=== PATIENT | female | born 1995 | race Caucasian/White ===

== ENCOUNTER 2019-09-19 22:45 | Observation (INO) | payer OTHER ==
[~2019-09-19] VITALS: Ht 167.6 cm; Wt 99.8 kg
[2019-09-19] MEDS ORDERED: LACTATED RINGERS 1,000 ML IV SCH (23:50)
[2019-09-19 23:54] VITALS: BP 132/79
[2019-09-20] MEDS ORDERED: TRA200 PO (05:52)
[2019-09-20] MEDS ORDERED: PREN-380 PO (05:52)
[2019-09-20 06:28] LABS: BASOPHILS % (AUTO) 0.3 % (0.0-2.0); EOSINOPHILS # (AUTO) 0.2 K/uL (0-0.4); EOSINOPHILS % (AUTO) 1.7 % (0.0-4.0); HEMATOCRIT 31.3 % (36-48); HEMOGLOBIN 10.4 g/dL (12.0-16.0); LYMPHOCYTES # (AUTO) 2.1 K/uL (2.5-16.5); LYMPHOCYTES % (AUTO) 20.5 % (20.5-51.1); MEAN CORPUSCULAR HEMOGLOBIN 26 pg (27-31); MEAN CORPUSCULAR HGB CONC 33 g/dL (33-37); MEAN CORPUSCULAR VOLUME 77.2 fL (80-94); MONOCYTES # (AUTO) 0.7 K/uL (0.8-1.0); MONOCYTES % (AUTO) 7.1 % (1.7-9.3); NEUTROPHILS # (AUTO) 7.2 K/uL (1.8-7.7); NEUTROPHILS % (AUTO) 70.4 % (42.2-75.2); PLATELET COUNT (AUTO) 362 K/uL (140-450); RED BLOOD CELL COUNT(AUTO) 4.06 MIL/uL (4.20-5.40); RED CELL DISTRIBUTION WIDTH 14.4 % (11.6-13.7); WHITE BLOOD COUNT (AUTO) 10.2 K/uL (4.8-10.8)
== END 2019-09-20 06:10 | disposition home or self-care (01) ==
LOC: MLD 22:45
PROVIDERS: ADMIT Obstetrics & Gynecology; ATTEND Obstetrics & Gynecology
DX: O62.9 Abnormality of forces of labor, unspecified (principal); O26.893 Other specified pregnancy related conditions, third trimester; R10.2 Pelvic and perineal pain; Z3A.38 38 weeks gestation of pregnancy
CPT/HCPCS: 36415; 81000; 85025; 86886; 86900; 86901; G0378; J7120

== ENCOUNTER 2019-09-20 14:45 | Outpatient (CLI) | payer OTHER ==
[~2019-09-20 14:45] MED LIST: PREN-380 PO; TRA200 PO
[2019-09-20 15:58] LABS: APPEARANCE,URINE CLEAR (CLEAR); BILIRUBIN,URINE NEGATIVE (NEGATIVE); BLOOD, URINE 1+ (NEGATIVE); LEUKOCYTE ESTERASE ,URINE TRACE (NEGATIVE); NITRITE, URINE NEGATIVE (NEGATIVE); PH,URINE 6.5 (5.0-9.0); UGLUCOSE NEGATIVE (NEGATIVE)
[2019-09-20 16:00] LABS: COLOR,URINE STRAW (YELLOW); PROTHROMBIN TIME 8.8 secs (10.8-13.4)
[2019-09-20 16:09] LABS: RBC,URINE 0-5 /HPF (0-5); WBC,URINE 0-5 /HPF (0-5)
[2019-09-20 20:01] LABS: ALBUMIN 2.7 g/dL (3.4-5.0); ANION GAP 15.7 (8-16); CARBON DIOXIDE 21.4 mmol/L (21-32); CREATININE 0.8 mg/dL (0.6-1.3); POTASSIUM 4.1 mmol/L (3.5-5.1); TOTAL BILIRUBIN 0.2 mg/dL (0.0-1.0)
== END 2019-09-20 19:56 | disposition home or self-care (01) ==
LOC: MLB 14:45
PROVIDERS: ATTEND Obstetrics & Gynecology
DX: Z01.818 Encounter for other preprocedural examination (principal); O34.219 Maternal care for unspecified type scar from previous cesarean delivery; Z3A.39 39 weeks gestation of pregnancy
CPT/HCPCS: 36415; 80053; 81001; 85610; 85730

== ENCOUNTER 2019-09-22 05:36 | Inpatient (IN) | payer OTHER ==
[~2019-09-22] VITALS: Ht 167.6 cm; Wt 99.8 kg
[2019-09-22] MEDS ORDERED: LACTATED RINGERS 1,000 ML IV SCH (05:52)
[2019-09-22] MEDS ORDERED: ceFAZolin 1,000 MG VIAL ONE (06:54)
[2019-09-22 06:56] VITALS: BP 122/73
[2019-09-22] MEDS ORDERED: CITRIC ACID/SODIUM CITRATE 30 ML UDC ONE (07:10)
[2019-09-22] MEDS ORDERED: CITRIC ACID/SODIUM CITRATE 30 ML UDC PO SCH (07:30)
[2019-09-22] MEDS ORDERED: MORPHINE PRES FREE 10 MG/10 ML AMP IV ONE (07:40)
[2019-09-22] MEDS ORDERED: fentaNYL 0.05 MG/ML VIAL ONE (07:40)
[2019-09-22] MEDS ORDERED: SIMETHICONE 80 MG TAB.CHEW PO PRN (07:55)
[2019-09-22] MEDS ORDERED: ONDANSETRON 4 MG/2 ML VIAL IVP PRN ×2 (08:05)
[2019-09-22] MEDS ORDERED: NALBUPHINE 10 MG/ML AMP IVP PRN (08:05)
[2019-09-22] MEDS ORDERED: diphenhydrAMINE 50 MG/ML VIAL IVP PRN (08:05)
[2019-09-22] MEDS ORDERED: KETOROLAC 30 MG/ML VIAL IVP PRN (08:05)
[2019-09-22] MEDS ORDERED: NALOXONE 0.4 MG/ML VIAL IVP PRN ×3 (08:05)
--- NOTE | 2019-09-22 08:30 | NUR ---
PATIENT HAS BEEN SCREENED AND CATEGORIZED LOW NUTRITION RISK. PATIENT WILL BE SEEN WITHIN 7 DAYS OF ADMISSION. 09/28/[address]
[2019-09-22] MEDS ORDERED: ONDANSETRON 4 MG/2 ML VIAL ONE (08:42)
[2019-09-22] MEDS ORDERED: OXYTOCIN 20 UNITS/LR PREMIX 1,000 ML IV ONE (08:42)
[2019-09-22] MEDS ORDERED: CALCIUM POLYCARBOPHIL 625 MG TAB PO SCH (09:00)
[2019-09-22] MEDS ORDERED: BISACODYL 10 MG SUPP RC SCH (09:00)
[2019-09-22] MEDS: LABETALOL 200 MG TAB PO SCH ×2 (13:00→21:17)
[2019-09-22] MEDS: OXYTOCIN 20 UNITS in LACTATED RINGERS 1,000 ML IV SCH ×2 (13:09→21:20)
[2019-09-22 13:26] LABS: APPEARANCE,URINE CLEAR (CLEAR); BILIRUBIN,URINE NEGATIVE (NEGATIVE); BLOOD, URINE 1+ (NEGATIVE); COLOR,URINE YELLOW (YELLOW); LEUKOCYTE ESTERASE ,URINE TRACE (NEGATIVE); NITRITE, URINE NEGATIVE (NEGATIVE); UGLUCOSE NEGATIVE (NEGATIVE)
[2019-09-22 13:33] LABS: WBC,URINE 0-5 /HPF (0-5)
[2019-09-22] MEDS ORDERED: SENNA 8.6 MG TAB PO SCH (21:00)
[2019-09-22] MEDS: DOCUSATE SOD/SENNA 50/8.6 MG 1 TAB PO SCH (21:00)
[2019-09-23] MEDS: KETOROLAC 30 MG/ML VIAL IVP PRN ×2 (00:40→07:56)
[2019-09-23] MEDS ORDERED: OXYTOCIN 20 UNITS/LR PREMIX 1,000 ML IV ONE (04:54)
[2019-09-23] MEDS: OXYTOCIN 20 UNITS in LACTATED RINGERS 1,000 ML IV SCH (05:03)
[2019-09-23] MEDS: HYDROcodone/APAP 5/325 MG 1 TAB TAB PO PRN ×3 (06:24→21:31)
[2019-09-23] MEDS ORDERED: oxyCODONE/APAP 5/325 MG 1 TAB TAB PO PRN (08:00)
[2019-09-23] MEDS ORDERED: IBUPROFEN 800 MG TAB PO PRN (08:00)
[2019-09-23] MEDS ORDERED: TEMAZEPAM 15 MG CAP PO PRN (08:00)
[2019-09-23] MEDS ORDERED: BUPRENORPHINE 0.3 MG/ML VIAL IV PRN (08:00)
[2019-09-23 08:36] LABS: BASOPHILS % (AUTO) 0.3 % (0.0-2.0); EOSINOPHILS # (AUTO) 0.2 K/uL (0-0.4); EOSINOPHILS % (AUTO) 2.1 % (0.0-4.0); HEMATOCRIT 30.8 % (36-48); HEMOGLOBIN 10.2 g/dL (12.0-16.0); LYMPHOCYTES # (AUTO) 1.1 K/uL (2.5-16.5); LYMPHOCYTES % (AUTO) 10.1 % (20.5-51.1); MEAN CORPUSCULAR HEMOGLOBIN 26 pg (27-31); MEAN CORPUSCULAR HGB CONC 33 g/dL (33-37); MEAN CORPUSCULAR VOLUME 76.7 fL (80-94); MONOCYTES # (AUTO) 0.7 K/uL (0.8-1.0); MONOCYTES % (AUTO) 6.1 % (1.7-9.3); NEUTROPHILS # (AUTO) 8.9 K/uL (1.8-7.7); NEUTROPHILS % (AUTO) 81.4 % (42.2-75.2); PLATELET COUNT (AUTO) 355 K/uL (140-450); RED BLOOD CELL COUNT(AUTO) 4.02 MIL/uL (4.20-5.40); RED CELL DISTRIBUTION WIDTH 14.7 % (11.6-13.7); WHITE BLOOD COUNT (AUTO) 10.9 K/uL (4.8-10.8)
[2019-09-23] MEDS: LABETALOL 200 MG TAB PO SCH ×2 (09:26→21:32)
[2019-09-23] MEDS: BISACODYL 5 MG TABEC PO SCH ×2 (09:28→21:32)
[2019-09-23] MEDS: DOCUSATE SOD/SENNA 50/8.6 MG 1 TAB PO SCH (21:33)
[2019-09-24] MEDS: BISACODYL 5 MG TABEC PO SCH ×2 (08:39→21:00)
[2019-09-24] MEDS: LABETALOL 200 MG TAB PO SCH ×2 (08:39→20:44)
[2019-09-24] MEDS: HYDROcodone/APAP 5/325 MG 1 TAB TAB PO PRN ×2 (08:39→20:43)
[2019-09-24] MEDS: DOCUSATE SOD/SENNA 50/8.6 MG 1 TAB PO SCH (21:00)
[2019-09-25] MEDS ORDERED: KETOROLAC 30 MG/ML VIAL IVP PRN (08:00)
[2019-09-25] MEDS: HYDROcodone/APAP 5/325 MG 1 TAB TAB PO PRN (08:34)
[2019-09-25] MEDS: BISACODYL 5 MG TABEC PO SCH (08:34)
[2019-09-25] MEDS: LABETALOL 200 MG TAB PO SCH (08:35)
== END 2019-09-25 16:20 | disposition home or self-care (01) | DRG 787 ==
LOC: MLD 05:36 → MFCC 08:22
PROVIDERS: ADMIT Obstetrics & Gynecology; ATTEND Obstetrics & Gynecology
PROC: 10D00Z1 Extraction of Products of Conception, Low, Open Approach (ICD-10-PCS; principal; 2019-09-22 07:30)
PROC: 3E0234Z Introduction of Serum, Toxoid and Vaccine into Muscle, Percutaneous Approach (ICD-10-PCS; 2019-09-23)
DX: O34.211 Maternal care for low transverse scar from previous cesarean delivery (principal); O10.92 Unspecified pre-existing hypertension complicating childbirth; O76 Abnormality in fetal heart rate and rhythm complicating labor and delivery; Z3A.39 39 weeks gestation of pregnancy; Z37.0 Single live birth; Z23 Encounter for immunization
CPT/HCPCS: 36415; 81001; 85025; 86592; 87081; 90715; J0690; J1885; J2270; J2405; J2590; J3010; J7060; J7120

== ENCOUNTER 2020-11-22 17:40 | Emergency (ER) | payer OTHER ==
[~2020-11-22] VITALS: Ht 167.6 cm; Wt 108.9 kg
[~2020-11-22 17:40] MED LIST changes: -TRA200 PO
[2020-11-22 19:09] VITALS: BP 155/93
--- NOTE | 2020-11-22 19:11 | NUR ---
providing urine and triaged and waiting in lobby.
[2020-11-22 20:52] LABS: BASOPHILS % (AUTO) 0.2 % (0.0-2.0); EOSINOPHILS # (AUTO) 0.2 K/uL (0-0.4); EOSINOPHILS % (AUTO) 1.8 % (0.0-4.0); HEMATOCRIT 29.8 % (36-48); HEMOGLOBIN 9.7 g/dL (12.0-16.0); LYMPHOCYTES # (AUTO) 1.4 K/uL (2.5-16.5); LYMPHOCYTES % (AUTO) 11.4 % (20.5-51.1); MEAN CORPUSCULAR HEMOGLOBIN 24 pg (27-31); MEAN CORPUSCULAR HGB CONC 33 g/dL (33-37); MEAN CORPUSCULAR VOLUME 73.9 fL (80-94); MONOCYTES # (AUTO) 0.7 K/uL (0.8-1.0); MONOCYTES % (AUTO) 5.9 % (1.7-9.3); NEUTROPHILS # (AUTO) 10.1 K/uL (1.8-7.7); NEUTROPHILS % (AUTO) 80.7 % (42.2-75.2); PLATELET COUNT (AUTO) 419 K/uL (140-450); RED BLOOD CELL COUNT(AUTO) 4.04 MIL/uL (4.20-5.40); RED CELL DISTRIBUTION WIDTH 15.8 % (11.6-13.7); WHITE BLOOD COUNT (AUTO) 12.5 K/uL (4.8-10.8)
[2020-11-22 21:02] LABS: APPEARANCE,URINE CLEAR (CLEAR); BILIRUBIN,URINE NEGATIVE (NEGATIVE); BLOOD, URINE 3+ (NEGATIVE); COLOR,URINE YELLOW (YELLOW); LEUKOCYTE ESTERASE ,URINE NEGATIVE (NEGATIVE); NITRITE, URINE NEGATIVE (NEGATIVE); UGLUCOSE NEGATIVE (NEGATIVE)
[2020-11-22 21:39] LABS: RBC,URINE 20-50 /HPF (0-5)
[2020-11-22 21:41] LABS: WBC,URINE 0-5 /HPF (0-5)
[2020-11-22 21:50] VITALS: BP 132/71
--- NOTE | 2020-11-22 21:51 | NUR ---
see complete assessment.
--- NOTE | 2020-11-22 22:09 | NUR ---
Patient discharged with v/s stable. Written and verbal after care instructions given and explained. Patient verbalized understanding. Ambulatory with steady gait. All questions addressed prior to discharge. Advised to follow up with PMD.
== END 2020-11-22 22:09 | disposition home or self-care (01) ==
LOC: MED 18:18
DX: O20.0 Threatened abortion (principal); Z3A.12 12 weeks gestation of pregnancy; Z79.899 Other long term (current) drug therapy
CPT/HCPCS: 36415; 76801; 81001; 84702; 85025; 86900; 86901; 99284

== ENCOUNTER 2021-05-18 10:10 | Observation (INO) | payer OTHER, SELFPAY ==
[~2021-05-18] VITALS: Ht 165.1 cm; Wt 115.7 kg
[2021-05-18] MEDS ORDERED: TRA200 PO (11:08)
[2021-05-18] MEDS ORDERED: SYN.1 PO (11:08)
[2021-05-18] MEDS ORDERED: ASPI-1884 PO (11:08)
[2021-05-18] MEDS ORDERED: LACTATED RINGERS 500 ML IV SCH (11:30)
[2021-05-18] MEDS ORDERED: PROMETHAZINE 25 MG/ML VIAL IVP SCH (11:30)
[2021-05-18] MEDS ORDERED: NALBUPHINE 10 MG/ML AMP IVP SCH (11:30)
[2021-05-18] MEDS: LACTATED RINGERS 1,000 ML IV SCH ×2 (12:20→16:12)
[2021-05-18 12:31] VITALS: BP 123/73
[2021-05-18 13:31] LABS: BASOPHILS % (AUTO) 0.2 % (0.0-2.0); EOSINOPHILS # (AUTO) 0.1 K/uL (0-0.4); EOSINOPHILS % (AUTO) 1.5 % (0.0-4.0); HEMATOCRIT 32.4 % (36-48); LYMPHOCYTES # (AUTO) 1.2 K/uL (2.5-16.5); LYMPHOCYTES % (AUTO) 13.6 % (20.5-51.1); MEAN CORPUSCULAR HEMOGLOBIN 27 pg (27-31); MEAN CORPUSCULAR HGB CONC 34 g/dL (33-37); MEAN CORPUSCULAR VOLUME 79.4 fL (80-94); MONOCYTES # (AUTO) 0.6 K/uL (0.8-1.0); MONOCYTES % (AUTO) 7.1 % (1.7-9.3); NEUTROPHILS # (AUTO) 6.9 K/uL (1.8-7.7); NEUTROPHILS % (AUTO) 77.6 % (42.2-75.2); PLATELET COUNT (AUTO) 316 K/uL (140-450); RED BLOOD CELL COUNT(AUTO) 4.07 MIL/uL (4.20-5.40); RED CELL DISTRIBUTION WIDTH 16.2 % (11.6-13.7); WHITE BLOOD COUNT (AUTO) 8.9 K/uL (4.8-10.8)
[2021-05-18 13:35] LABS: BILIRUBIN,URINE NEGATIVE (NEGATIVE); BLOOD, URINE 1+ (NEGATIVE); COLOR,URINE YELLOW (YELLOW); LEUKOCYTE ESTERASE ,URINE NEGATIVE (NEGATIVE); NITRITE, URINE NEGATIVE (NEGATIVE); UGLUCOSE NEGATIVE (NEGATIVE)
[2021-05-18 13:36] LABS: APPEARANCE,URINE SLIGHTLY HAZY (CLEAR)
[2021-05-18 13:39] LABS: RBC,URINE 0-5 /HPF (0-5); WBC,URINE 0-5 /HPF (0-5)
[2021-05-18 13:42] LABS: ALBUMIN 2.3 g/dL (3.4-5.0); ANION GAP 11.8 (8-16); CARBON DIOXIDE 24.1 mmol/L (21-32); CREATININE 0.9 mg/dL (0.6-1.3); POTASSIUM 3.9 mmol/L (3.5-5.1); TOTAL BILIRUBIN 0.2 mg/dL (0.0-1.0)
[2021-05-18] MEDS: TERBUTALINE 1 MG/ML VIAL SUBQ SCH ×2 (14:41→15:40)
== END 2021-05-18 16:50 | disposition home or self-care (01) ==
LOC: MLD 10:10 → UNDOADMOB 10:30 → MLD 10:30
PROVIDERS: ADMIT Obstetrics & Gynecology; ATTEND Obstetrics & Gynecology
DX: O62.9 Abnormality of forces of labor, unspecified (principal); Z20.822 Contact with and (suspected) exposure to COVID-19; Z3A.37 37 weeks gestation of pregnancy
CPT/HCPCS: 36415; 80053; 81001; 85025; 86592; 86886; 86900; 86901; 87426; 96361; 96372; 96374; 96375; G0378; J2300; J2550; J3105

== ENCOUNTER 2021-05-24 15:00 | Observation (INO) | payer OTHER, SELFPAY ==
[~2021-05-24] VITALS: Ht 167.6 cm; Wt 113.4 kg
[~2021-05-24 15:00] MED LIST changes: +ASPI-1884 PO; +SYN.1 PO; +TRA200 PO
[2021-05-24 15:15] VITALS: BP 137/80
== END 2021-05-24 16:10 | disposition home or self-care (01) ==
LOC: MFCC 15:00
PROVIDERS: ADMIT Obstetrics & Gynecology; ATTEND Obstetrics & Gynecology
DX: O26.893 Other specified pregnancy related conditions, third trimester (principal); R10.9 Unspecified abdominal pain; Z3A.38 38 weeks gestation of pregnancy
CPT/HCPCS: 59025; 81000; G0378

== ENCOUNTER 2021-05-31 05:37 | Inpatient (IN) | payer OTHER ==
[~2021-05-31] VITALS: Ht 165.1 cm; Wt 115.7 kg
[2021-05-31] MEDS ORDERED: CARBOPROST 250 MCG/ML AMP IM PRN (06:00)
[2021-05-31] MEDS ORDERED: LACTATED RINGERS 1,000 ML IV SCH (06:00)
[2021-05-31] MEDS ORDERED: METHYLERGONOVINE 0.2 MG/ML AMP IM PRN (06:00)
[2021-05-31 06:18] LABS: APPEARANCE,URINE CLOUDY (CLEAR); BILIRUBIN,URINE NEGATIVE (NEGATIVE); BLOOD, URINE 2+ (NEGATIVE); COLOR,URINE YELLOW (YELLOW); NITRITE, URINE NEGATIVE (NEGATIVE); UGLUCOSE NEGATIVE (NEGATIVE)
[2021-05-31 06:19] LABS: BASOPHILS % (AUTO) 0.4 % (0.0-2.0); EOSINOPHILS # (AUTO) 0.1 K/uL (0-0.4); EOSINOPHILS % (AUTO) 1.4 % (0.0-4.0); HEMOGLOBIN 11.9 g/dL (12.0-16.0); LYMPHOCYTES # (AUTO) 1.7 K/uL (2.5-16.5); LYMPHOCYTES % (AUTO) 16.8 % (20.5-51.1); MEAN CORPUSCULAR HEMOGLOBIN 27 pg (27-31); MEAN CORPUSCULAR HGB CONC 34 g/dL (33-37); MEAN CORPUSCULAR VOLUME 79.5 fL (80-94); MONOCYTES # (AUTO) 0.8 K/uL (0.8-1.0); MONOCYTES % (AUTO) 8.3 % (1.7-9.3); NEUTROPHILS # (AUTO) 7.3 K/uL (1.8-7.7); NEUTROPHILS % (AUTO) 73.1 % (42.2-75.2); PLATELET COUNT (AUTO) 332 K/uL (140-450)
[2021-05-31 06:36] LABS: LEUKOCYTE ESTERASE ,URINE 1+ (NEGATIVE); WBC,URINE 0-5 /HPF (0-5)
[2021-05-31] MEDS ORDERED: ceFAZolin 1,000 MG VIAL ONE (07:05)
[2021-05-31] MEDS ORDERED: MORPHINE PRES FREE 10 MG/10 ML AMP IV ONE (07:22)
[2021-05-31] MEDS ORDERED: MEASLES, MUMPS, AND RUBELLA 1 VIAL SQVAC PRN ×2 (08:00→08:15)
[2021-05-31] MEDS ORDERED: KETOROLAC 30 MG/ML VIAL IVP PRN (08:00)
[2021-05-31] MEDS ORDERED: IBUPROFEN 800 MG TAB PO PRN (08:00)
[2021-05-31] MEDS ORDERED: ONDANSETRON 4 MG/2 ML VIAL IVP PRN ×3 (08:00→09:55)
[2021-05-31] MEDS ORDERED: MAGNESIUM CITRATE 300 ML BTL PO SCH (08:00)
[2021-05-31] MEDS ORDERED: ceFAZolin 1,000 MG VIAL IVP ONE (08:00)
[2021-05-31] MEDS ORDERED: TEMAZEPAM 15 MG CAP PO PRN (08:00)
[2021-05-31] MEDS ORDERED: KETAMINE 500 MG/5 ML VIAL ONE (08:25)
[2021-05-31] MEDS ORDERED: fentaNYL citrate 0.05 MG/ML VIAL ONE (08:38)
[2021-05-31] MEDS ORDERED: OXYTOCIN 20 UNITS/LR PREMIX 1,000 ML IV ONE ×2 (08:41→23:31)
[2021-05-31] MEDS ORDERED: COMMUNICATION ORDER MC PRN (08:45)
[2021-05-31] MEDS ORDERED: ACETAMINOPHEN 100 ML IV SCH (09:00)
[2021-05-31] MEDS ORDERED: diphenhydrAMINE 50 MG/ML VIAL IVP PRN ×2 (09:50→09:55)
[2021-05-31] MEDS ORDERED: NALOXONE 0.4 MG/ML VIAL IVP PRN ×3 (09:50)
[2021-05-31] MEDS ORDERED: NALBUPHINE 10 MG/ML AMP IVP PRN (09:50)
[2021-05-31] MEDS ORDERED: OXYTOCIN 20 UNITS in LACTATED RINGERS 1,000 ML IV SCH (09:55)
[2021-05-31] MEDS ORDERED: HYDROmorphone 1 MG/ML AMP IVP PRN (09:55)
[2021-05-31] MEDS ORDERED: MEPERIDINE 25 MG/ML SYR IVP PRN (09:55)
[2021-05-31] MEDS ORDERED: KETOROLAC 30 MG/ML VIAL IM/IVP SCH (12:00)
--- NOTE | 2021-05-31 12:13 | NUR ---
PATIENT HAS BEEN SCREENED AND CATEGORIZED LOW NUTRITION RISK. PATIENT WILL BE SEEN WITHIN 7 DAYS OF ADMISSION. 06/06/[address]
[2021-05-31 12:53] LABS: ALBUMIN 2.7 g/dL (3.4-5.0); ANION GAP 15.8 (8-16); CREATININE 0.9 mg/dL (0.6-1.3); POTASSIUM 3.8 mmol/L (3.5-5.1); TOTAL BILIRUBIN 0.2 mg/dL (0.0-1.0)
[2021-05-31] MEDS: OXYTOCIN 20 UNITS in LACTATED RINGERS 1,000 ML IV SCH (16:29)
[2021-05-31] MEDS: DOCUSATE SOD/SENNA 50/8.6 MG 1 TAB PO SCH (21:00)
[2021-06-01] MEDS: OXYTOCIN 20 UNITS in LACTATED RINGERS 1,000 ML IV SCH (01:03)
[2021-06-01] MEDS ORDERED: oxyCODONE/APAP 5/325 MG 1 TAB TAB PO PRN ×2 (02:00)
[2021-06-01 05:10] LABS: BASOPHILS % (AUTO) 0.2 % (0.0-2.0); EOSINOPHILS % (AUTO) 0.3 % (0.0-4.0); HEMATOCRIT 29.4 % (36-48); HEMOGLOBIN 10.1 g/dL (12.0-16.0); LYMPHOCYTES # (AUTO) 1.7 K/uL (2.5-16.5); LYMPHOCYTES % (AUTO) 12.8 % (20.5-51.1); MEAN CORPUSCULAR HEMOGLOBIN 27 pg (27-31); MEAN CORPUSCULAR HGB CONC 34 g/dL (33-37); MEAN CORPUSCULAR VOLUME 79.7 fL (80-94); MONOCYTES # (AUTO) 0.9 K/uL (0.8-1.0); MONOCYTES % (AUTO) 6.7 % (1.7-9.3); NEUTROPHILS # (AUTO) 10.6 K/uL (1.8-7.7); PLATELET COUNT (AUTO) 303 K/uL (140-450); RED BLOOD CELL COUNT(AUTO) 3.68 MIL/uL (4.20-5.40); RED CELL DISTRIBUTION WIDTH 16.3 % (11.6-13.7); WHITE BLOOD COUNT (AUTO) 13.2 K/uL (4.8-10.8)
[2021-06-01] MEDS: LEVOTHYROXINE 0.1 MG TAB PO SCH (07:20)
[2021-06-01] MEDS: SIMETHICONE 80 MG TAB.CHEW PO PRN ×2 (10:07→18:31)
[2021-06-01] MEDS: DOCUSATE SOD/SENNA 50/8.6 MG 1 TAB PO SCH (21:06)
[2021-06-02] MEDS ORDERED: CAMERA MC ONE (02:56)
[2021-06-02] MEDS: LEVOTHYROXINE 0.1 MG TAB PO SCH (06:33)
[2021-06-02] MEDS: SIMETHICONE 80 MG TAB.CHEW PO PRN (09:07)
[2021-06-02] MEDS ORDERED: FERR325E14 PO (12:21)
[2021-06-02] MEDS ORDERED: ACET-5629 PO (12:23)
[2021-06-02] MEDS ORDERED: IBUP-2213 PO (12:24)
== END 2021-06-02 14:10 | disposition home or self-care (01) | DRG 787 ==
LOC: MLD 05:37 → MFCC 09:40
PROVIDERS: ADMIT Obstetrics & Gynecology; ATTEND Obstetrics & Gynecology
PROC: 10D00Z1 Extraction of Products of Conception, Low, Open Approach (ICD-10-PCS; principal; 2021-05-31 07:30)
DX: O34.211 Maternal care for low transverse scar from previous cesarean delivery (principal); O10.92 Unspecified pre-existing hypertension complicating childbirth; Z37.0 Single live birth; Z20.822 Contact with and (suspected) exposure to COVID-19; Z3A.39 39 weeks gestation of pregnancy; O99.284 Endocrine, nutritional and metabolic diseases complicating childbirth; O99.824 Streptococcus B carrier state complicating childbirth
CPT/HCPCS: 36415; 80053; 81001; 85025; 86592; 86886; 86900; 86901; 87086; J0690; J1885; J2270; J2590; J3010; J7060; J7120